=== PATIENT | male | born 1970 | race Caucasian/White ===

== ENCOUNTER 2022-11-30 14:15 | Emergency (ER) | payer OTHER, SELFPAY ==
[2022-11-30 14:16] VITALS: BP 138/95; PULSE 56; RESP 16; TEMP 36.6; O2SAT 100; BMI 27.1
--- NOTE | 2022-11-30 14:31 | EKG12_ITS ---
Test Reason : CP Blood Pressure : / mmHG Vent. Rate : 055 BPM Atrial Rate : 055 BPM P-R Int : 164 ms QRS Dur : 092 ms QT Int : 394 ms P-R-T Axes : 066 072 024 degrees QTc Int : 376 ms Sinus bradycardia Otherwise normal ECG Confirmed by ANY SMITH, DESTINY ([id number]), rewrite editor ALESIA BRISCOE ([id number]) on 12/03/2022 10:46:30 AM Referred By: BETTY Confirmed By:DESTINY AGARWAL MD
[2022-11-30 14:40] VITALS: O2SAT 99
[2022-11-30] MEDS: Aspirin 81 MG TAB.CHEW 324 MG PO (14:42)
--- NOTE | 2022-11-30 14:47 | RAD_ITS ---
STUDY: X-RAY CHEST REASON FOR EXAM: Male, 52 years old. Chest pain TECHNIQUE: Single AP portable view of the chest. COMPARISON: None. FINDINGS: EKG electrodes are seen. The lungs are clear and expanded. There is no demonstrated pleural abnormality. Normal size heart. Normal mediastinum and dana. Normal visualized pulmonary arteries. There is atherosclerotic tortuosity of the aortic arch and descending thoracic aorta. There are diffuse degenerative changes of the visualized thoracic spine. Normal visualized ribs, clavicles, and shoulders. There is no demonstrated abnormality of the visualized soft tissue structures of the upper abdomen. RAD/Chest 1 View (Portable) IMPRESSION: No acute abnormality is seen. Electronically Signed: Delmer Jones MD at 14:57 EDT ,
[2022-11-30 14:50] LABS: Absolute Neutrophil Count 3.2 X10^3/uL (2.0-7.7); Basophil# 0.01 X10^3/uL; Basophil% 0.2 % (0-1); Eosinophil# 0.02 X10^3/uL; Eosinophils% 0.4 % (0-5); Hematocrit 42.7 % (40-54); Hemoglobin 15.2 g/dL (13.0-16.5); Lymphocyte % 33.1 % (19-41); Mean Corp Hgb Conc 35.6 g/dL (32-36); Mean Corpuscular Hgb 30.7 pg (27.0-32.0); Mean Corpuscular Volume 86.3 fL (80-94); Mean Platelet Vol. 8.5 fl (6.2-12.0); Monocyte% 7.4 % (0-10); NRBC Flagged by Analyzer 0 % (0-5); Neutrophil # 3.19 X10^3/uL (2.7-7.7); Neutrophil % 58.5 % (47-70); Platelet Count 197 K/mm3 (150-450); RBC Distribution Width CV 11.7 % (11.6-14.6); RBC Distribution Width SD 36.4 fl (35.1-43.9); Red Blood Count 4.95 M/mm3 (4.6-6.2); White Blood Count 5.4 K/mm3 (4.4-11.0)
[2022-11-30 15:04] LABS: Anion Gap 7 (5-15); BUN 9 mg/dL (7-18); Chloride 99 mmol/L (98-107); Creatinine, Serum 0.82 mg/dL (0.70-1.30); EST Glomerular Filtration Rate 105 mL/min (>60); Est Glom Filt Rate - Afr Amer 127 mL/min (>60); Estimated Creatinine Clearance 104.18 ml/min; Glucose 92 mg/dL (74-106); Potassium 3.7 mmol/L (3.5-5.1); Sodium Level 133 mmol/L (136-145); Troponin-I HS 4 pg/mL (3.0-78.0)
[2022-11-30 15:05] LABS: D-Dimer Quantitative (DVT/PE) < 0.27 FEU/ug/m (0.27-0.49)
--- NOTE | 2022-11-30 15:29 | ED.VIS.CHEST ---
HPI History of Present Illness Chief Complaint: Chest Pain Informant: patient Narrative Narrative: Patient is a 52-year-old male with history of anxiety presenting with recurrent episode of chest tightness and shortness of breath. Patient states he has had 8 or 9 ER visits in the past month for similar symptoms. He has been worked up from a heart standpoint very thoroughly and also been referred to psychiatry. Patient notes he does have a lot of anxiety. He was actually driving from [place] with a psychiatrist appointments back home to [place] when he started to feel increased shortness of breath. He describes the shortness of breath as feeling like he is not getting enough air even though he know he is breathing. He has some mild chest discomfort. He notes that he had the same shortness of breath last night and chest tightness. It normally is not as constant and will resolve which is what brought him into the ER today. Patient states he has been compliant with his Prozac and metoprolol. He was put on metoprolol for tachycardia. He states he did have a Holter monitor already. It was recently decreased from 50 mg to 20 mg because he is starting to get dizzy. Patient also states he is not sure when he should come into the ER for his symptoms however he notes he was prescribed him some new medications to help with breakthrough symptoms today however he has not picked them up. Denies any swelling of his legs. Denies any history of DVT or PE. States that 6 months ago he was on Zoloft and after about 3 weeks did help but he stopped taking it. About a month ago he started having increased anxiety, difficulty sleeping, ruminating on thoughts, chest discomfort and shortness of breath. He was put on Prozac about 2 weeks ago and it was just increased from 20 mg to 40 mg. Does not think it is helping yet. Usually receives his care through [facility] but since he was driving through [employer] to get home today he came to our emergency room. Prior Similar Symptoms: Yes PFSH PFSH Medical History no medical history Allergy/AdvReac Type Severity Reaction Status Date / Time No Known Allergies Allergy Verified 11/30/22 14:18 Social History Smoking Status: Unknown if ever smoked ROS ROS ED Constitutional Constitutional ED: Reports other Details: hands and feet get clammy ; Denies chills, fever(s) or sweats Eyes Eyes: Denies blurry vision ENT ENT ED: Denies rhinorrhea or sore throat Cardiovascular Cardiovascular: Reports as per HPI and chest pain Respiratory/Chest Respiratory/Chest: Denies cough or dyspnea Gastrointestinal Gastrointestinal: Denies abdominal pain, nausea or vomiting Musculoskeletal Musculoskeletal: Denies arthralgias, myalgias or neck pain Neurologic Neurologic: Denies headache(s) or weakness Psychiatric Psychiatric: Reports anxiety Hematologic/Lymphatic Hematologic/Lymphatic: Denies easy bleeding or easy bruising EXAM Physical Exam Const Vital Signs: 11/30/22 14:16 11/30/22 14:35 11/30/22 14:40 Temperature 98 F Temperature Source Temporal Pulse Rate 56 L Respiratory Rate 16 Respiratory Effort Non-Labored Short of Breath Blood Pressure 138/95 H Blood Pressure Mean 109 Pulse Ox 100 99 Oxygen Delivery Method Room Air Room Air 11/30/22 15:36 11/30/22 15:38 11/30/22 16:22 Temperature Temperature Source Pulse Rate 44 L 50 L 52 L Respiratory Rate 12 15 Respiratory Effort Blood Pressure 130/74 H 131/80 H Blood Pressure Mean 92 97 Pulse Ox 95 99 Oxygen Delivery Method Room Air Room Air Positive well nourished and well developed General Appearance ED: well developed and NAD HEENT Reports moist mucous membranes Eyes PERRL and EOMs intact bilaterally Neck supple and no JVD Chest Wall inspection of chest normal and palpation of chest normal Resp normal respiratory effort and clear to auscultation bilaterally Effort and Inspection: Negative for respiratory distress Auscultation: Negative for wheezes or diminished lung sounds Cardio regular rate, regular rhythm and no murmurs Peripheral Pulses: pulses 2+ throughout GI normal to inspection, nondistended, normoactive bowel sounds Extremity normal to inspection General Extremety ED: Negative for edema General Extremity: Negative for edema Neuro oriented x3 Sensorium / Orientation: awake Motor Exam: Negative for general weakness Psych mental status grossly normal Mood & Affect: anxious Skin no rashes or lesions noted and no wounds Heart Score History: Slightly/Non-Suspicious ECG: Normal Age: >45 - <65 years Risk Factors: No Risk Factors Troponin: </= Normal Limit Score: 1 MDM MDM MDM Narrative Medical decision making narrative: Patient is a 52-year-old male with history of anxiety as well as episodes of chest discomfort and shortness of breath. Patient's had multiple work-ups for this at outside hospitals including observation with a stress test. He has had CTAs of his head and neck. He had a TSH. His work-up was been largely normal. It was thought to be more secondary to anxiety and patient is currently following with psychiatry. He did have Valium at home which seem to be helping. His doctor did prescribe him a new as needed medicines and he just does not recall the name and has not picked it up yet. Patient's cardiac work-up here including a D-dimer, high-sensitivity troponin EKG is largely normal. Symptoms symptoms started last night I do not think he needs repeat/delta high-sensitivity troponin. He has no electrolyte abnormalities explain his symptoms. Chest x-ray to read by myself as well as radiology does not show any acute process to explain his symptoms. No signs of pneumothorax. Patient counseled that the cause of his symptoms is not clear. I did discuss that if his cardiac work-up all comes back normal and he continues to have symptoms he might benefit from pulmonology evaluation/PFTs as he also is having shortness of breath. He is currently not have any wheezing and I do not think he would benefit at this time from a DuoNeb. Patient is encouraged to follow-up with his primary care doctor in [place] for this. He verbalizes agreement understand this plan. We discussed return precautions as patient's not sure when he should go back to the ER given how frequent he has been to the ER lately and how his symptoms have been so persistent. History & Record Review Additional record(s) reviewed:: Other (Records from [facility]-clinisync: Patient has had negative CTA head and neck and a negative stress test on 11/19/2022) Lab Data Attestation: I reviewed the patient's lab results. Labs: Laboratory Results - last 24 hr 11/30/22 11/30/22 11/30/22 14:35 14:35 14:35 WBC 5.4 RBC 4.95 Hgb 15.2 Hct 42.7 MCV 86.3 MCH 30.7 MCHC 35.6 RDW Std Deviation 36.4 RDW Coeff of Livia 11.7 Plt Count 197 MPV 8.5 Immature Gran % (Auto) 0.400 Neut % (Auto) 58.5 Lymph % (Auto) 33.1 [place] % (Auto) 7.4 Eos % (Auto) 0.4 Baso % (Auto) 0.2 Absolute Neuts (auto) 3.2 Absolute Lymphs (auto) 1.80 Nucleated RBC % 0 D-Dimer Quant (PE/DVT) < 0.27 L Sodium 133 L Potassium 3.7 Chloride 99 Carbon Dioxide 27.0 Anion Gap 7 BUN 9 Creatinine 0.82 Estim Creat Clear Calc 104.18 Est GFR (MDRD) Af Amer 127 Est GFR (MDRD) Non-Af 105 BUN/Creatinine Ratio 11.0 Glucose 92 Calcium 9.0 Troponin I High Sens 4 Radiography Chest X-Ray - ED: 1 View, Read by ED Physician, Read by Radiologist and No Acute Disease Diagnostic Testing: Clinical Impression(s) from Imaging Studies Chest X-Ray 11/30/22 14:47 IMPRESSION: No acute abnormality is seen. Electronically Signed: Delmer Jones MD at 14:57 EDT Reading Location ID and State: [facility] / [place] , Service support , Rhythm Strip Rhythm Strip: Sinus Rhythm Rate: 55 Ectopy: None EKG Initial EKG: Attestation: I personally reviewed and interpreted this EKG as follows: Interpretation: Sinus Bradycardia Comments: Sinus bradycardia rate of 55 bpm Normal axis Normal intervals Normal ST segments Differential Diagnosis Chest pain/SOB: pulmonary embolism Reason(s) PE less likely: Positive for Well's <3, D-Dimer negative, not tachycardic and not hypoxic, ACS ACS: Positive for no evidence of ACS based on cardiac biomarkers and EKG without ischemia, pneumothorax Reason(s) pneumothorax less likely: Positive for bilateral breath sounds and [employer] CABLE TOOL withhout PTX and COPD Reason(s) COPD less likely: Positive for no significant wheezing on exam, no tachypnea, no conversational dyspnea and normal air movement noted on auscultation on lungs Discharge Plan Triage Chief Complaint: Chest Pain ED Provider: Unique Hamm Dx/Rx/DC Orders Clinical Impression: Chest tightness, Dyspnea Instructions: ED Chest Pain, Uncertain Cause Primary Care Provider: FRANC GREWAL Referrals: [facility] Doctor,Out of [Non-Staff] - Activity Restrictions/Additional Instructions: Exact cause of your continued symptoms is not clear however your work-up is largely normal today. No signs consistent with acute cardiac strain, inflammation around the heart, heart attack or blood clot. No electrolyte abnormalities. Please continue to follow-up outpatient with psychiatry as well as with your primary care doctor. Please discuss possible pulmonary function test with your primary care doctor if other avenues do not yield answers for your symptoms. Start taking your breakthrough medicine that was prescribed today for your anxiety to see if this helps with your symptoms. If you have a progression of your symptoms, sharp chest pain, radiation of chest pain to your back or abdomen or other concerns please return to your nearest emergency room Disposition Disposition: Home, Self Care
[2022-11-30 15:36] VITALS: BP 130/74; PULSE 44; RESP 12; O2SAT 95
[2022-11-30 15:38] VITALS: PULSE 50
[2022-11-30 16:22] VITALS: BP 131/80; PULSE 52; RESP 15; O2SAT 99
[2022-11-30 16:49] VITALS: BP 125/83; PULSE 52; RESP 13; O2SAT 98
== END 2022-11-30 17:02 | disposition home or self-care (01) ==
PROVIDERS: Emergency Provider Emergency Medicine; Visit Provider Emergency Medicine
DX: R07.89 Other chest pain (principal); F41.9 Anxiety disorder, unspecified; R06.00 Dyspnea, unspecified
CPT/HCPCS: 71045; 80048; 84484; 85025; 85379; 93005; 99284